=== PATIENT | female | born 1970 | race Asian ===

== ENCOUNTER 2020-08-14 07:05 | Day surgery (SDC) | payer OTHER ==
[2020-08-09 15:52] VITALS: BMI 22.2
[2020-08-14] MEDS ORDERED: PROPOFOL 20 ML ONE ×2 (08:17)
[2020-08-14] MEDS ORDERED: LIDOCAINE HCL/PF 2% SDV 5ML VIAL ONE (08:17)
[2020-08-14 08:54] VITALS: TEMP 98.1
[2020-08-14 09:25] VITALS: BP 109/64; PULSE 65
== END 2020-08-14 09:27 | disposition home or self-care (01) ==
LOC: FASU-ENDO 07:05
PROVIDERS: ATTEND Internal Medicine Gastroenterology
PROC: 0DB78ZX Excision of Stomach, Pylorus, Via Natural or Artificial Opening Endoscopic, Diagnostic (ICD-10-PCS; 2020-08-14)
PROC: 0DB98ZX Excision of Duodenum, Via Natural or Artificial Opening Endoscopic, Diagnostic (ICD-10-PCS; principal; 2020-08-14 08:30)
DX: K29.50 Unspecified chronic gastritis without bleeding (principal); K29.80 Duodenitis without bleeding; Z88.2 Allergy status to sulfonamides; Z91.011 Allergy to milk products
CPT/HCPCS: 88305-TC; 88342-TC